=== PATIENT | female | born 1990 | race Caucasian/White ===

== ENCOUNTER → 2020-09-06 11:06 | Outpatient (CLI) | payer BC, SELFPAY ==
[2020-09-06 14:01] LABS: T4 Free Direct 1.15 ng/dL (0.76-1.46); Thyroid Stim Hormone (TSH) 1.36 uIU/mL (0.358-3.74)
[2020-09-06 21:35] LABS: Vitamin D,25 Hydroxy 33.9 ng/mL
== END ==
PROVIDERS: Visit Provider Obstetrics & Gynecology
DX: E03.9 Hypothyroidism, unspecified (principal); E28.2 Polycystic ovarian syndrome; E55.9 Vitamin D deficiency, unspecified
CPT/HCPCS: 36415; 82306; 82627; 84439; 84443; 84481; 82626